=== PATIENT | male | born 1985 ===

== ENCOUNTER 2016-12-17 23:39 | Emergency (ER) | payer SELFPAY ==
[2016-12-17 23:56] VITALS: BP 107/65; PULSE 84; RESP 16; TEMP 98.4; O2SAT 100
[2016-12-18] MEDS ORDERED: Bacitracin 500 Units/gm Oint Foilpak UD ONE (00:44)
--- NOTE | 2016-12-18 00:57 | C.PDOC ---
History Of Present Illness Patient is a 31 y/o female who presents to the ED with a complaint of a laceration to left index finger when cutting a pineapple at home. Patient denies any weakness or numbness. No other complaints at this time. Time Seen by Provider: 12/18/16 00:00 Chief Complaint (Nursing): Abnormal Skin Integrity History Per: Patient History/Exam Limitations: no limitations Onset/Duration Of Symptoms: Hrs Current Symptoms Are (Timing): Still Present Recent travel outside of the [place]: No Past Medical History Reviewed: Historical Data, Nursing Documentation, Vital Signs Vital Signs: Last Vital Signs Temp 98.4 F 12/17/16 23:50 Pulse 84 12/17/16 23:50 Resp 16 12/17/16 23:50 BP 107/65 12/17/16 23:50 Pulse Ox 100 12/18/16 03:37 - Medical History PMH: No Chronic Diseases Surgical History: No Surg Hx Family History: States: Unknown Family Hx - Social History Hx Alcohol Use: Yes Hx Substance Use: No - Immunization History Hx Tetanus Toxoid Vaccination: No Hx Influenza Vaccination: No Hx Pneumococcal Vaccination: No Review Of Systems Constitutional: Negative for: Weakness Skin: Positive for: Other (laceration to left index finger) Neurological: Negative for: Numbness Physical Exam - Physical Exam Appears: Well, Non-toxic, No Acute Distress Skin: Normal Color, Warm, Dry, Other (1.5cm laceration to palmar aspect of distal left second finger, with minimal bleeding. ) Head: Atraumatic, Normacephalic Eye(s): bilateral: Normal Inspection, PERRL Extremity: Normal ROM, Tenderness (to left 2nd finger) Extremity: Bilateral: Normal Color And Temperature, Normal ROM Pulses: Left Radial: Normal, Right Radial: Normal ED Course And Treatment O2 Sat by Pulse Oximetry: 100 Pulse Ox Interpretation: Normal Progress Note: Tetanus ordered. Wound care instructions were given as well as follow up care Laceration - Laceration Repair Index finger Wound Length (In cm): 1.5 Description Of Wound: Linear Wound Cleansed With: Betadine, Sterile Saline (40cc) Anesthesia: Lidocaine 2% Wound Examination: Irrigated With Saline, No FB With Wound Exploration, No Tendon Injury With Wound Exploration Wound Closure: Suture (x6) Suture Technique And Material Used: Nylon (4.0) Wound Complexity: Simple (pt tolerated well) Disposition Counseled Patient/Family Regarding: Diagnosis, Need For Followup, Rx Given - Disposition Referrals: [facility] [Outside] Disposition: HOME/ ROUTINE Disposition Time: 00:52 Condition: STABLE Additional Instructions: Please follow up with PMD suture removal in 10 days Take meds as directed Return to ER if worse Instructions: Care For Your Stitches (ED) Forms: [employer] ([place]ian) - Clinical Impression Clinical Impression: Finger laceration - Scribe Statement The provider has reviewed the documentation as recorded by the Scribe Manasa Bean All medical record entries made by the Scribe were at my direction and personally dictated by me. I have reviewed the chart and agree that the record accurately reflects my personal performance of the history, physical exam, medical decision making, and the department course for this patient. I have also personally directed, reviewed, and agree with the discharge instructions and disposition.
== END 2016-12-18 01:13 | disposition home or self-care (01) ==
LOC: C.ER 23:39
DX: S61.211A Laceration without foreign body of left index finger without damage to nail, initial encounter (principal); W26.0XXA Contact with knife, initial encounter; Y93.G1 Activity, food preparation and clean up; Y92.009 Unspecified place in unspecified non-institutional (private) residence as the place of occurrence of the external cause; Z23 Encounter for immunization